=== PATIENT | female | born 1945 | race Caucasian/White ===

== ENCOUNTER 2023-03-23 08:23 | Outpatient (REF) | payer MEDICARE, SELFPAY ==
--- NOTE | ~2023-03-23 | XR_ITS ---
EXAMINATION: XR PELVIS CLINICAL INFORMATION: Pain COMPARISON: None available. TECHNIQUE: AP view of the pelvis. FINDINGS: Post surgical changes of right total hip arthroplasty in anatomic alignment. No evidence of hardware fracture or complication. Left hip joint space is maintained. No acute fracture or dislocation. A 1.5 cm sclerotic lesion in the right iliac bone, in the absence of primary malignancy may reflect a bone island. Calcified phleboliths in the pelvis. Desiccated stool within colon and rectum. XR/XR pelvis 1-2V IMPRESSION: 1. Post surgical changes of right total hip arthroplasty in anatomic alignment. No evidence of hardware fracture or complication. 2. A 1.5 cm sclerotic lesion in the right iliac bone, in the absence of primary malignancy may reflect a bone island. If patient has a primary malignancy a bone scan or CT pelvis would be more sensitive for evaluation.
== END 2023-03-23 08:24 | disposition home or self-care (01) ==
LOC: HO.HOSX 08:23
PROVIDERS: Visit Provider Orthopaedic Surgery
DX: M25.551 Pain in right hip (principal); M21.70 Unequal limb length (acquired), unspecified site; Z96.641 Presence of right artificial hip joint; Z87.81 Personal history of (healed) traumatic fracture; Z91.81 History of falling
CPT/HCPCS: 72170

== ENCOUNTER 2023-03-23 08:46 | Outpatient (AMB) | payer MEDICARE, SELFPAY ==
--- NOTE | 2023-03-23 08:48 | MHC.OFFVIS ---
Intake Vital Signs 03/23/23 09:07 Height 5 ft Weight 138 lb BMI 26.9 Intake Visit Reasons: New Pt - Right Hip 2nd Opinion - Sam 03/29/22 Intake Note: William is a 77 year old female who presents today as a new patient for a second opinion of her right hip. On March 28 2022 she sustained a right femur fracture s/p falling down. On March 29 2022, she had a Right Hip Hemiarthroplasty done by Dr. Glass at [facility]. States she has a length discrepancy in right side which make her 5' and 4'11 tall on her left side. Reports this making her walk funny. States she has also had to have custom orthotics made and still is not enough. States this give her discomfort in her groin, pain in her lateral aspect o f hip and is off balance on her feet. Allergies anesthetic Allergy (Mild, Uncoded 03/23/23 09:10) trouble waking up codine Allergy (Mild, Uncoded 03/23/23 09:10) Headache HPI New Pt - Right Hip 2nd Opinion - Sam 03/29/22 HPI Details William is a 77 year old Diabetic woman who presents to discuss her leg-length discrepancy. She has a hx of right hip hemiarthroplasty, DOS: 03/29/22 at [facility] and has been wearing a shoe lift to accommodate for this. She complains of pain in her groin and lateral aspect of her hip, as well as difficulty with her balance and gait. She is feeling limited in her daily activities due to her pain, saying she is not able to walk long distances or run anymore and she is concerned she may have been gaining weight since she has not been able to be active as she would like. She says according to prior scans her right leg is 5' & left leg is 4'11 . She denies any knee pain She has been wearing a custom orthotic shoe lift in her left shoe but says this is not enough for her. She is frustrated by her pain and her treatment from her previous surgeon. [facility] Social History Current occupational status: retired and disabled Review of Systems Const All systems reviewed & are unremarkable except as noted in HPI and below Physical Exam Vital Signs: BMI result Body Mass Index 26.9 Const General: no acute distress, alert and awake Orientation/consciousness: patient oriented x3 HEENT Head: Yes normocephalic and Yes atraumatic Eyes EOM: EOMs intact bilaterally Resp Effort & Inspection: normal respiratory effort and able to speak in complete sentences Cardio Jugular venous distension: no JVD Skin General skin exam: turgor normal Rashes: no rashes Neuro General: patient oriented x3 Extrem Other: Right Hip: Well-healed incision Right leg length ~2 cm longer than left Compensatory gait Psych Appearance: grossly normal Affect: normal affect Attitude: cooperative Results Reviewed Results Reviewed: I personally reviewed relevant radiographs. Right hip hemiarthroplsty with femoral prosthesis incompletely seated in the femoral metphysis resulting in length disparity Assessment & Plan Assessment & Plan (1) Leg length discrepancy: Code(s): M21.70 - Unequal limb length (acquired), unspecified site Plan: This is a 77 year old woman with a leg-length discrepancy of ~1 inch, S/P right hip hemiarthroplasty, DOS: 03/29/22 at outside institution. She complains of poor balance & gait mechanics, as well as pain in her groin & lateral hip. She has been wearing orthotic shoe lifts, with some improvement, but continues to be limited in her ADLs. I reviewed her radiographs with her, and had a long discussion with her concerning a revision hip arthroplasty, including the risk of femur fracture vs ETO. The patient would like to take time to consider her options. She can follow up as needed. If she would like a referral to an outside orthopedic office I am happy to work with her on this. We discussed this option as well. (2) History of right hip hemiarthroplasty: Code(s): Z96.641 - Presence of right artificial hip joint (3) Diabetes mellitus: Code(s): E11.9 - Type 2 diabetes mellitus without complications Plan Scribed for Param White MD by Ever Noel, medical physics professor, on 03/23/23 at 9:15 AM, EST. Orders: Orders XR pelvis 1-2V 03/23/23 M25.559 - Pain in unspecified hip Coding Level of Care Code New Pt Level 4 (76228) Diagnoses Leg length discrepancy M21.70 History of right hip hemiarthroplasty Z96.641 Diabetes mellitus E11.9
[2023-03-23 09:07] VITALS: BMI 26.9
== END 2023-03-23 09:37 | disposition home or self-care (01) ==
PROVIDERS: Visit Provider Orthopaedic Surgery
DX: M21.751 Unequal limb length (acquired), right femur (principal); Z96.641 Presence of right artificial hip joint
CPT/HCPCS: 99204

== ENCOUNTER 2023-11-16 09:58 | Outpatient (AMB) | payer MEDICARE, SELFPAY ==
--- NOTE | 2023-11-16 09:59 | MHC.OFFVIS ---
Vital Signs 11/16/23 10:05 Height 5 ft Weight 138 lb BMI 26.9 Intake Visit Reasons: OV- Right hip follow up Intake Note: Florentino a 77 year old woman who presetsnt today for a follow up of her right hip. She has a leg-length discrepancy of ~1 inch, S/P right hip hemiarthroplasty, DOS: 03/29/22 at outside institution. She complains of poor balance & gait mechanics, as well as pain in her groin & lateral hip. She has been wearing orthotic shoe lifts, with some improvement, but continues to be limited in her ADLs. Patient went to see Dr. Mullins - who advised that a revision was not needed, he recommended extensive PT. She has started with [facility] where she completed about 20 sessions with her before she reached max healing. She then went to [employer] [facility] for personal training. She is feeling better. He lift has decreased, she is at a 3/4 lift and her goal is 1/2 lift. She still struggles with a burning pain in the posterior aspect of the right hip, this pain is primarily felt when she does too much acitivty. She takes Tylenol and applies biofreeze which does help. Allergies anesthetic Allergy (Mild, Uncoded 03/23/23 09:10) trouble waking up codine Allergy (Mild, Uncoded 03/23/23 09:10) Headache HPI HPI OV- Right hip follow up: Details: This is a 78-year-old woman that I have seen the past for our right leg length discrepancy. He had hemiarthroplasty performed at an outside institution proximally 2 years ago. She came to see me with her right leg being proximally 1 in longer than her left. She was subsequently seen at outside clinic that recommended physical therapy. She returns today wondering she could get some long leg standing views of bilateral bilateral legs. She states she continues to have difficulty walking. She feels like her back and hips hurt because her gait is affected so significantly. She feels like her right leg is longer than left. [facility] Social History Current occupational status: retired and disabled Physical Exam Vital Signs: BMI result Body Mass Index 26.9 Const General: no acute distress, alert and awake Orientation/consciousness: patient oriented x3 HEENT Head: Yes normocephalic and Yes atraumatic Eyes EOM: EOMs intact bilaterally Resp Effort & Inspection: normal respiratory effort and able to speak in complete sentences Cardio Jugular venous distension: no JVD Skin General skin exam: turgor normal Rashes: no rashes Neuro General: patient oriented x3 Extrem Other: Right Hip: Well-healed incision Right leg length ~2 cm longer than left Compensatory gait Psych Appearance: grossly normal Affect: normal affect Attitude: cooperative Results Reviewed Results Reviewed: I personally reviewed relevant radiographs. Right COLEMAN in with no hardware complications or evidence of loosening Assessment & Plan Assessment & Plan (1) Leg length discrepancy: Code(s): M21.70 - Unequal limb length (acquired), unspecified site Category: Medical Plan: 78-year-old woman with a likely discrepancy status post hemiarthroplasty. She is doing physical therapy in actually graduated so now she is working with a head athletic trainer/strength coach. She is much better than she was in the past and I do not recommend surgery. I do think it is reasonable to obtain long leg standing views bilateral lower extremities accurately assess any leg length. Orders: Orders XR pelvis 1-2V 11/16/23 M25.559 - Pain in unspecified hip Coding Level of Care Code Est Pt Level 4 (56982) Diagnoses Leg length discrepancy M21.70
[2023-11-16 10:05] VITALS: BMI 26.9
== END 2023-11-16 10:46 | disposition home or self-care (01) ==
PROVIDERS: PCP Internal Medicine; Visit Provider Orthopaedic Surgery
DX: M21.751 Unequal limb length (acquired), right femur (principal); Z96.641 Presence of right artificial hip joint
CPT/HCPCS: 99213

== ENCOUNTER 2023-11-16 09:58 | Outpatient (REF) | payer MEDICARE, SELFPAY ==
--- NOTE | ~2023-11-16 | XR_ITS ---
EXAMINATION: XR HIP, RIGHT Pelvis: CLINICAL INFORMATION: Pain in hip COMPARISON: None available. TECHNIQUE: Two views of the right hip. Pelvis: FINDINGS: Right hip and pelvis: Hemiarthroplasty of the right hip redemonstrated with unchanged appearance and alignment. No periprosthetic fracture or suspicious area of lucency. Left hip unremarkable. Ossification overlying the left iliac bone likely reflecting bone island unchanged. The remaining visualized pelvis unremarkable. XR/XR hip RT min 2V IMPRESSION: Right hip hemiarthroplasty without change or complication by x-ray.
== END 2023-11-16 09:59 | disposition home or self-care (01) ==
LOC: HO.HOSX 09:58
PROVIDERS: PCP Internal Medicine; Visit Provider Orthopaedic Surgery
DX: M25.551 Pain in right hip (principal); M21.70 Unequal limb length (acquired), unspecified site; R26.9 Unspecified abnormalities of gait and mobility
CPT/HCPCS: 73502; 99212

== ENCOUNTER 2023-11-24 10:35 | Outpatient (REF) | payer MEDICARE, SELFPAY | END 2023-11-24 10:36 | disposition home or self-care (01) | LOC: HO.XRAY 10:35 | PROVIDERS: PCP Internal Medicine; Visit Provider Orthopaedic Surgery | DX: Z13.89 Encounter for screening for other disorder (principal) ==

== ENCOUNTER 2023-11-26 14:56 | Outpatient (REF) | payer MEDICARE, SELFPAY ==
--- NOTE | ~2023-11-26 | XR_ITS ---
EXAMINATION: CRX ray bone length study CLINICAL INFORMATION: Unable limb length, acquired COMPARISON: Previous pelvis and right hip x-ray 11/20/2023 TECHNIQUE: Standing AP view of the pelvis and bilateral lower extremities FINDINGS: Right hip hemiarthroplasty unchanged. No fracture or dislocation or x-ray evidence of loosening. No leg length discrepancy seen. There may be slight increased valgus angulation at the right knee. Soft tissues are normal. XR/XR bone length study IMPRESSION: Satisfactory appearance of right hip hemiarthroplasty. No leg length discrepancy seen.
== END 2023-11-26 14:57 | disposition home or self-care (01) ==
LOC: HO.XRAY 14:56
PROVIDERS: Visit Provider Orthopaedic Surgery
DX: M21.70 Unequal limb length (acquired), unspecified site (principal); Z96.641 Presence of right artificial hip joint
CPT/HCPCS: 77073

== ENCOUNTER 2024-02-08 11:01 | Outpatient (AMB) | payer MEDICARE, SELFPAY ==
--- NOTE | 2024-02-08 11:16 | A.OFFVIS_ITS ---
Intake Visit Reasons: OV-whole right leg xray follow up Intake Note: William is a 78 year old female who presents today for a follow up of her leg length discrepancy s/p S/P right hip hemiarthroplasty, DOS: 03/29/22 that was preformed at an outside facility. Allergies anesthetic Allergy (Mild, Uncoded 03/23/23 09:10) trouble waking up codine Allergy (Mild, Uncoded 03/23/23 09:10) Headache HPI HPI OV-whole right leg xray follow up: Details: William is a 78 year old female who presents today for a follow up of her leg length discrepancy s/p S/P right hip hemiarthroplasty, DOS: 03/29/22 that was preformed at an outside facility. Leg Length discrepancy images performed She has done a lot of PT but still describes difficulty sitting, walking and generalized discomfort. She has a lift in her left shoe and feels that her right leg is rotated differently than her left. [facility] Social History Current occupational status: retired and disabled Physical Exam Const General: no acute distress, alert and awake Orientation/consciousness: patient oriented x3 HEENT Head: Yes normocephalic and Yes atraumatic Eyes EOM: EOMs intact bilaterally Resp Effort & Inspection: normal respiratory effort and able to speak in complete sentences Cardio Jugular venous distension: no JVD Skin General skin exam: turgor normal Rashes: no rashes Neuro General: patient oriented x3 Extrem Other: Right Hip: Well-healed incision Antalgic gait. No hip pain with ROM Psych Appearance: grossly normal Affect: normal affect Attitude: cooperative Results Reviewed Results Reviewed: I personally reviewed relevant radiographs. There is a mild LLD with right longer than left when comparing lesser trochanters although the measured leg lenngths are comparable on the cassette views The Right hip prosthesis does have increased offset compared to left. Assessment & Plan Assessment & Plan (1) History of right hip hemiarthroplasty: Code(s): Z96.641 - Presence of right artificial hip joint Category: Surgical Plan: This is complicated as her actual leg length discrepency is less than her perceived leg length. I think it also involves abductor tension which is problematic on the right. This has led to frustration for William. She is unable to walk normally but I do not recommend surgery as I think prosthetic removal is not justifiable from a risk-reward perspective. She understands. Coding Level of Care Code Est Pt Level 4 (35746) Diagnoses History of right hip hemiarthroplasty Z96.641
== END 2024-02-08 11:58 | disposition home or self-care (01) ==
PROVIDERS: PCP Internal Medicine; Visit Provider Orthopaedic Surgery
DX: Z47.89 Encounter for other orthopedic aftercare (principal); Z96.641 Presence of right artificial hip joint
CPT/HCPCS: 99213

== ENCOUNTER → 2024-02-08 11:01 | Outpatient (BNVA) | payer MEDICARE, SELFPAY | PROVIDERS: PCP Internal Medicine; Visit Provider Orthopaedic Surgery | DX: M21.751 Unequal limb length (acquired), right femur (principal); Z96.641 Presence of right artificial hip joint | CPT/HCPCS: 99212 ==